=== PATIENT | female | born 1990 | race African-American/Black ===

== ENCOUNTER 2024-06-24 14:05 | Emergency (ER) | payer OTHER ==
[~2024-06-24] VITALS: Ht 162.6 cm; Wt 72.6 kg
[~2024-06-24 14:05] MED LIST: CEFPODOXIME PR200 MG PO
[2024-06-24 14:25] VITALS: PULSE 97; RESP 15; TEMP 98.2
[2024-06-24] MEDS: ONDANSETRON HCL INJ 2MG/ML 2ML 2 MG/ML VIAL IV STA (15:17)
[2024-06-24] MEDS: SODIUM CHLORIDE 0.9% 1000ML 1,000 ML IV STA (15:17)
[2024-06-24 15:22] LABS: BASOPHILS # (AUTO) 0.1 (0.0-0.1); BASOPHILS % 0.8 % (0.0-1.0); EOSINOPHILS # (AUTO) 0.6 (0.0-0.4); EOSINOPHILS % 5.8 % (0.0-6.0); HEMATOCRIT 41.2 % (34.2-44.1); HEMOGLOBIN 13.5 g/dL (12.0-16.0); LYMPHOCYTES # (AUTO) 4.4 (1.0-3.2); LYMPHOCYTES % 46.4 % (18.0-39.1); MEAN CORPUSCULAR HEMOGLOBIN 30.8 pg (28-32); MEAN CORPUSCULAR HGB CONC 32.8 g/dL (31-35); MEAN CORPUSCULAR VOLUME 94.1 fL (81-99); MONOCYTES # (AUTO) 0.6 (0.2-0.8); MONOCYTES % 6.2 % (4.4-11.3); NEUTROPHILS # (AUTO) 3.8 (2.1-6.9); NEUTROPHILS % 40.6 % (38.7-80.0); PLATELET COUNT 299 x10e3/uL (140-360); RED BLOOD COUNT 4.38 x10e6/uL (3.6-5.1); RED CELL DISTRIBUTION WIDTH 14.2 % (11.7-14.4); WHITE BLOOD COUNT 9.42 x10e3/uL (4.8-10.8)
[2024-06-24 15:39] LABS: ALANINE AMINOTRANSFERASE 7 IU/L (0-55); ALBUMIN 3.6 g/dL (3.5-5.0); ALKALINE PHOSPHATASE 79 IU/L (40-150); BILIRUBIN,TOTAL 0.7 mg/dL (0.2-1.2); BLOOD UREA NITROGEN 7 mg/dL (7-26); BUN/CREATININE RATIO 10 (6-25); CALCIUM 9.4 mg/dL (8.4-10.2); CLARITY,URINE HAZY (CLEAR); COLOR,URINE YELLOW (YELLOW); CREATININE, SERUM 0.71 mg/dL (0.57-1.11); EST GLOMERULAR FILTRATION RATE 113 ML/MIN (>=60); GLUCOSE 78 mg/dL (74-118); GLUCOSE, URINE NEGATIVE (NEGATIVE); KETONES,URINE TRACE (NEGATIVE); LEUKOCYTE ESTERASE ,URINE NEGATIVE (NEGATIVE); NITRITE,URINE NEGATIVE (NEGATIVE); PH,URINE 7 (5 - 7); PROTEIN,URINE DIPSTICK NEGATIVE (NEGATIVE); TOTAL PROTEIN 7.2 g/dL (6.5-8.1); URINE UROBILINOGEN 1 mg/dL (0.2 - 1)
[2024-06-24 15:40] LABS: BILIRUBIN,URINE NEGATIVE (NEGATIVE)
[2024-06-24 15:42] LABS: BACTERIA,URINE FEW /HPF; EPITHELIAL CELLS,URINE FEW /LPF; RBC,URINE 0-5 /HPF (0-5); WBC,URINE (MAN) 0-5 /HPF (0-5)
[2024-06-24] MEDS: KETOROLAC TROMETHAMINE 30 MG/ML VIAL IV STA (15:47)
[2024-06-24] MEDS ORDERED: IOPAMIDOL 370 MG/ML 100 ML INFUS..BTL INJ ONE (15:50)
[2024-06-24 16:25] LABS: POTASSIUM 3.7 mmol/L (3.5-5.1); SODIUM 141 mmol/L (136-145)
[2024-06-24 16:26] LABS: ANION GAP 11.7 mmol/L (8-16); CARBON DIOXIDE 26 mmol/L (22-29); CHLORIDE 107 mmol/L (98-107)
[2024-06-24] MEDS ORDERED: DICYCLOMINE HCL20 MG PO (17:37)
[2024-06-24] MEDS: DICYCLOMINE HCL 20 MG/2 ML VIAL IM ONE (17:48)
[2024-06-24 17:56] VITALS: BP 115/85; PULSE 85; RESP 14; TEMP 98; O2SAT 100
== END 2024-06-24 17:54 | disposition home or self-care (01) ==
LOC: ER 14:21
DX: R10.2 Pelvic and perineal pain (principal); G89.29 Other chronic pain; N83.201 Unspecified ovarian cyst, right side; J45.909 Unspecified asthma, uncomplicated
CPT/HCPCS: 36415; 74177; 80053; 81001; 84702; 85025; 99284; J0500; J1885; J2405; J7030; Q9967